=== PATIENT | male | born 1955 | race Caucasian/White ===

== ENCOUNTER 2016-08-27 19:04 | Emergency (ER) | payer OTHER ==
[~2016-08-27] VITALS: Ht 165.1 cm; Wt 81.6 kg
[2016-08-27 19:10] VITALS: BP_SYST 155
[2016-08-27] MEDS ORDERED: SULFAMETHOXAZOLE/TRIMETHOPR DS 1 TABLET PO ONE (20:30)
[2016-08-27] MEDS ORDERED: MORPHINE 4 MG/ML INJ. SYRINGE IM ONE (20:30)
[2016-08-27] MEDS ORDERED: ONDANSETRON 4 MG ODT TAB PO ONE (20:30)
[2016-08-27] MEDS ORDERED: cefTRIAXone 1 GM in LIDOCAINE 1%, 20 ML MDV 2.1 ML IM ONE (20:30)
[2016-08-27] MEDS ORDERED: DIPHENHYDRAMINE HCL 25 MG CAPSULE PO ONE (20:30)
[2016-08-27] MEDS ORDERED: DIPHENHYDRAMINE HCL 25 MG CAPSULE ONE (20:56)
[2016-08-27 22:30] VITALS: BP_SYST 156
== END 2016-08-27 20:30 | disposition home or self-care (01) ==
LOC: SED 19:04
DX: S20.461A Insect bite (nonvenomous) of right back wall of thorax, initial encounter (principal); B02.9 Zoster without complications; W57.XXXA Bitten or stung by nonvenomous insect and other nonvenomous arthropods, initial encounter; Y93.89 Activity, other specified; Y92.89 Other specified places as the place of occurrence of the external cause; Y99.8 Other external cause status
CPT/HCPCS: 96372; 99284; J0696; J2001; J2270; Q0162; Q0163

== ENCOUNTER 2018-02-08 15:10 | Emergency (ER) | payer BC, OTHER ==
[~2018-02-08] VITALS: Ht 172.7 cm; Wt 83.5 kg
[2018-02-08 15:10] VITALS: BP_SYST 153
[2018-02-08 15:59] LABS: BASOPHILS # (AUTO) 0.2 K/uL (0.0-0.2); BASOPHILS % (AUTO) 1.5 % (0.0-2.0); EOSINOPHILS # (AUTO) 0.1 K/uL (0.0-0.4); EOSINOPHILS % (AUTO) 0.4 % (0.0-4.0); HEMATOCRIT 49.1 % (36-54); HEMOGLOBIN 16.6 g/dL (14.0-18.0); LYMPHOCYTES # (AUTO) 0.7 K/uL (1.0-5.5); LYMPHOCYTES % (AUTO) 4.8 % (20.5-51.5); MEAN CORPUSCULAR HEMOGLOBIN 31 pg (27-31); MEAN CORPUSCULAR HGB CONC 34 % (32-36); MEAN CORPUSCULAR VOLUME 91 fL (79.0-98.0); MONOCYTES # (AUTO) 0.5 K/uL (0.0-1.0); MONOCYTES % (AUTO) 3.3 % (1.7-9.3); NEUTROPHILS # (AUTO) 13.4 K/uL (1.8-7.7); PLATELET COUNT (AUTO) 228 K/uL (130-430); RED CELL DISTRIBUTION WIDTH 12.5 % (9.0-15.0); WHITE BLOOD COUNT (AUTO) 14.9 K/uL (4.8-10.8)
[2018-02-08 16:13] LABS: CALCIUM 9.9 mg/dL (8.4-11.0); CREATININE 1.19 mg/dL (0.55-1.30); POTASSIUM 4.2 mmol/L (3.5-5.1)
[2018-02-08] MEDS ORDERED: NACL 0.9% 1,000 ML IV ONE (16:15)
[2018-02-08] MEDS ORDERED: ONDANSETRON HCL 4 MG/2 ML VIAL IVP ONE (16:15)
[2018-02-08] MEDS ORDERED: MORPHINE 2 MG/ML INJ. SYRINGE IVP ONE (16:15)
[2018-02-08 16:19] LABS: ALBUMIN 4.3 g/dL (3.4-4.8); TOTAL BILIRUBIN 0.9 mg/dL (0.0-1.0)
[2018-02-08] MEDS ORDERED: INSULIN REGULAR, HUMAN 10 UNITS/0.1 ML INJ IVP ONE (16:30)
[2018-02-08 16:55] LABS: BILIRUBIN,URINE NEGATIVE (NEGATIVE); BLOOD, URINE NEGATIVE (NEGATIVE); CLARITY/URINE CLEAR (CLEAR); COLOR,URINE YELLOW (YELLOW); GLUCOSE,URINE 2+ (NEGATIVE); KETONES,URINE TRACE (NEGATIVE); LEUKOCYTE ESTERASE ,URINE NEGATIVE (NEGATIVE); NITRITE, URINE NEGATIVE (NEGATIVE); PROTEIN URINE TRACE (NEGATIVE); UROBILINOGEN,URINE 0.2 (0.2-1.0)
[2018-02-08 17:00] LABS: BACTERIA,URINE RARE /HPF (None Seen); RBC,URINE 0-3 /HPF (0-3); WBC,URINE 0-3 /HPF (0-3)
[2018-02-08] MEDS ORDERED: ACETAMINOPHEN 500 MG TABLET PO ONE (18:30)
[2018-02-08 18:50] VITALS: BP_SYST 146
== END 2018-02-08 18:50 | disposition home or self-care (01) ==
LOC: SED 15:10
DX: E11.65 Type 2 diabetes mellitus with hyperglycemia (principal); R10.13 Epigastric pain; D72.829 Elevated white blood cell count, unspecified; I10 Essential (primary) hypertension
CPT/HCPCS: 36415; 74176; 80053; 81000; 82962; 83690; 84484; 85025; 86710; 93005; 96361; 96374; 96375; 99284; J1815; J2405; J7030

== ENCOUNTER 2020-11-21 12:40 | Inpatient (IN) | payer BC, SELFPAY ==
[~2020-11-21] VITALS: Ht 165.1 cm; Wt 78.7 kg
[2020-11-21 12:40] VITALS: BP_SYST 140
--- NOTE | 2020-11-21 12:40 | NUR ---
BROUGHT BACK TO BED #3 AND TRIAGED. REPORT GIVEN TO DANIKA
--- NOTE | 2020-11-21 12:50 | NUR ---
DR HERRING IN TO ASSESS
[2020-11-21] MEDS ORDERED: NACL 0.9% 1,000 ML IV ONE (13:00)
[2020-11-21 13:28] LABS: BASOPHILS % (AUTO) 0.1 % (0.0-2.0); EOSINOPHILS % (AUTO) 0.1 % (0.0-4.0); HEMATOCRIT 40.1 % (36-54); HEMOGLOBIN 14.1 g/dL (14.0-18.0); LYMPHOCYTES # (AUTO) 1.3 K/uL (1.0-5.5); LYMPHOCYTES % (AUTO) 8.8 % (20.5-51.5); MEAN CORPUSCULAR HEMOGLOBIN 31 pg (27-31); MEAN CORPUSCULAR HGB CONC 35 % (32-36); MEAN CORPUSCULAR VOLUME 89 fL (79.0-98.0); MONOCYTES # (AUTO) 0.7 K/uL (0.0-1.0); MONOCYTES % (AUTO) 4.5 % (1.7-9.3); NEUTROPHILS # (AUTO) 13.2 K/uL (1.8-7.7); NEUTROPHILS % (AUTO) 86.5 % (40.0-70.0); PLATELET COUNT (AUTO) 174 K/uL (130-430); RED CELL DISTRIBUTION WIDTH 13.5 % (9.0-15.0); WHITE BLOOD COUNT (AUTO) 15.2 K/uL (4.8-10.8)
--- NOTE | 2020-11-21 13:31 | NUR ---
LABS, EKG,CXR COMPLETED, PT CALM, ALERT CALM, RESP UNLABORED, SKIN WARM AND DRY. COMMUNICATES CLEARLY IN FULL COMPLETE SENTECES
[2020-11-21 13:40] LABS: ANION GAP 10 (5-15); CALCIUM 9.4 mg/dL (8.4-11.0); CHLORIDE 95 mmol/L (98-107); CREATININE 1.19 mg/dL (0.55-1.30); GLUCOSE 216 mg/dL (70-99); POTASSIUM 3.7 mmol/L (3.5-5.1); SODIUM SERUM 131 mmol/L (136-145); UREA NITROGEN, BLOOD 11 mg/dL (8-21)
[2020-11-21 13:42] LABS: GFR AFRICAN AMERICAN 79 mL/min (>90)
[2020-11-21 13:49] LABS: ALANINE AMINOTRANSFERASE 28 U/L (12-78); ALBUMIN 3.8 g/dL (3.4-4.8); ASPARTATE AMINOTRANSFERASE 17 U/L (10-37); LIPASE 78 U/L (73-393); TOTAL BILIRUBIN 1.8 mg/dL (0.0-1.0)
--- NOTE | 2020-11-21 14:02 | NUR ---
dr lau back to bedside to reassess
[2020-11-21 14:07] LABS: ACETONE, SERUM NEGATIVE (NEGATIVE)
[2020-11-21 14:33] LABS: BILIRUBIN,URINE NEGATIVE (NEGATIVE); BLOOD, URINE 3+ (NEGATIVE); COLOR,URINE YELLOW (YELLOW); GLUCOSE,URINE TRACE (NEGATIVE); KETONES,URINE 1+ (NEGATIVE); LEUKOCYTE ESTERASE ,URINE 2+ (NEGATIVE); NITRITE, URINE POSITIVE (NEGATIVE); PROTEIN URINE 1+ (NEGATIVE); UROBILINOGEN,URINE 0.2 (0.2-1.0)
[2020-11-21 14:34] LABS: CLARITY/URINE HAZY (CLEAR)
[2020-11-21 14:39] LABS: BACTERIA,URINE MODERATE /HPF (None Seen); WBC,URINE 80-100 /HPF (0-3)
[2020-11-21 14:40] LABS: MUCUS,URINE 1+ /LPF (None Seen)
[2020-11-21] MEDS ORDERED: ASPIRIN 325 MG TABLET PO ONE (14:45)
--- NOTE | 2020-11-21 14:45 | NUR ---
dr stapleton to bedside
[2020-11-21] MEDS ORDERED: cefTRIAXone 1 GM IVPB PREMIX 50 ML IV ONE (15:00)
--- NOTE | 2020-11-21 15:30 | NUR ---
AT BEDSIDE, PT VISITING, NO DISTRESS
--- NOTE | 2020-11-21 16:00 | NUR ---
VISITING WITH FAMILY. PT CALM, ALERT, RESP UNLABORED, SKIN WARM AND DRY
--- NOTE | 2020-11-21 18:43 | NUR ---
AT BED, PT EATING MEAL, TOLERATING WELL
[2020-11-21] MEDS ORDERED: GLIP10TA11 PO (19:21)
[2020-11-21] MEDS ORDERED: PRO10 PO (19:21)
[2020-11-21] MEDS ORDERED: ROSU10TA2 PO (19:21)
[2020-11-21] MEDS ORDERED: METF-518 PO (19:21)
--- NOTE | 2020-11-21 19:21 | NUR ---
Medication reconciliation completed with information provided by PICTURES PROVIDED BY PATIENT. Any prior medication reconciliation on file was reviewed and corrected.
--- NOTE | 2020-11-21 19:21 | NUR ---
PATIENT IS A FULL CODE
--- NOTE | 2020-11-21 21:30 | NUR ---
Patient will be admitted to care of Dr. Call. Admitted to TELE unit. Will go to room 100B. Belongings list completed. Complete and up to date summary report printed. SBAR report to be given at bedside with opportunity for questions.
--- NOTE | 2020-11-21 21:33 | NUR ---
Patient resting quietly. No acute distress noted. Vital signs within normal range.
--- NOTE | 2020-11-21 21:46 | NUR ---
Report given to MICHELLE Alvarado for continuation of care on TELE in room 100B
--- NOTE | 2020-11-21 21:47 | NUR ---
Transfer to via ACLS protocol. Licensed nurse present. IV present no signs or symptoms of infiltration.
--- NOTE | 2020-11-21 22:00 | NUR ---
Admission Note Received patient from ER with diagnosis of CHEST PAIN, URINARY TRACT INFECTION. Initial Plan of Care discussed-patient verbalized understanding. Oriented to room, call light, pain management and safety.
[2020-11-21 22:31] VITALS: BP_SYST 128
--- NOTE | 2020-11-21 23:28 | NUR ---
CALLED Lobo PERES FOR ORDERS Called if Lobo Peres wanted to order any medications, fluids, or lab tests. Dr. Call states "I'll do those for you." No new orders.
[2020-11-21] MEDS ORDERED: HYDROcodone/ACETAMIN 10-325 MG TAB PO PRN (23:45)
[2020-11-21] MEDS ORDERED: LORazepam 2 MG/ML VIAL IVP PRN (23:45)
[2020-11-21] MEDS ORDERED: HYDROcodone/ACETAMIN 5-325 MG TAB (NORCO/ VICODIN) PO PRN (23:45)
[2020-11-21] MEDS ORDERED: ONDANSETRON HCL 4 MG/2 ML VIAL IVP PRN (23:45)
[2020-11-21] MEDS ORDERED: ACETAMINOPHEN 325 MG TABLET PO PRN (23:45)
[2020-11-21] MEDS ORDERED: NALOXONE HCL 0.4 MG/ML AMP (NARCAN) IVP PRN ×2 (23:45)
[2020-11-22] VITALS: BP_SYST 121
[2020-11-22] MEDS ORDERED: NORMAL SALINE 5 ML DISP.SYRIN IVF SCH (06:00)
--- NOTE | 2020-11-22 06:20 | NUR ---
CONSULTATION PAGED/CALLED Reason for Consultation: UTI Person Who was Notified: DR BURGOS WAS HERE Consulting Physician: DR BRUGOS Social Scientist Specialty: Ordering Physician: Lobo ZAMORA
[2020-11-22 06:25] LABS: BASOPHILS % (AUTO) 0.2 % (0.0-2.0); HEMATOCRIT 35.3 % (36-54); HEMOGLOBIN 12.4 g/dL (14.0-18.0); LYMPHOCYTES # (AUTO) 1.7 K/uL (1.0-5.5); LYMPHOCYTES % (AUTO) 12.6 % (20.5-51.5); MEAN CORPUSCULAR HEMOGLOBIN 31 pg (27-31); MEAN CORPUSCULAR HGB CONC 35 % (32-36); MEAN CORPUSCULAR VOLUME 89 fL (79.0-98.0); MONOCYTES # (AUTO) 1.1 K/uL (0.0-1.0); MONOCYTES % (AUTO) 8.5 % (1.7-9.3); NEUTROPHILS # (AUTO) 10.4 K/uL (1.8-7.7); NEUTROPHILS % (AUTO) 78.7 % (40.0-70.0); PLATELET COUNT (AUTO) 148 K/uL (130-430); RED BLOOD CELL COUNT(AUTO) 3.98 MIL/uL (4.2-6.2); RED CELL DISTRIBUTION WIDTH 13.6 % (9.0-15.0); WHITE BLOOD COUNT (AUTO) 13.2 K/uL (4.8-10.8)
[2020-11-22 06:26] LABS: ALANINE AMINOTRANSFERASE 25 U/L (12-78); ALBUMIN 3.1 g/dL (3.4-4.8); ANION GAP 11 (5-15); ASPARTATE AMINOTRANSFERASE 17 U/L (10-37); CALCIUM 8.9 mg/dL (8.4-11.0); CHLORIDE 104 mmol/L (98-107); CREATININE 1.03 mg/dL (0.55-1.30); GLUCOSE 178 mg/dL (70-99); PHOSPHORUS 2.3 mg/dL (2.7-4.5); POTASSIUM 3.8 mmol/L (3.5-5.1); SODIUM SERUM 139 mmol/L (136-145); THYROID STIMULATING HORMONE 1.76 uIu/mL (0.36-3.74); TOTAL BILIRUBIN 1.2 mg/dL (0.0-1.0); UREA NITROGEN, BLOOD 12 mg/dL (8-21)
[2020-11-22] MEDS: INSULIN REGULAR, HUMAN 100 UNITS/ML, 10 ML VIAL (humuLIN R) SUBCUT PRN ×4 (06:38→21:11)
[2020-11-22 06:39] LABS: GFR AFRICAN AMERICAN 94 mL/min (>90)
[2020-11-22 07:00] LABS: CHOLESTEROL 84 mg/dL (<200); HDL CHOLESTEROL 54 mg/dL (>45); LDL CHOLESTEROL 35 mg/dL (<100); TRIGLYCERIDES 62 mg/dL (30-150)
[2020-11-22] MEDS: NORMAL SALINE 5 ML DISP.SYRIN IVF SCH ×3 (07:03→21:07)
--- NOTE | 2020-11-22 07:24 | NUR ---
CLOSING NOTES Patient resting in bed - no s/s pain or distress noted. Respirations even and unlabored - head of bed elevated. IV site patent - new IV inserted L hand 22G SL (old site RAC 22G SL). Bed locked and in lowest position. Call light within reach.
[2020-11-22 08:00] VITALS: BP_SYST 124
--- NOTE | 2020-11-22 08:00 | NUR ---
OPENING PT IN BED. EYES OPEN. DOES NOT APPEAR TO BE IN DISTRESS. PLAN OF CARE DISCUSSED. PT VERBALIZED UNDERSTANDING
[2020-11-22] MEDS: FLUoxetine HCL 10 MG CAPSULE (PROzac) PO SCH (09:23)
[2020-11-22] MEDS: ATORVASTATIN 20 MG TABLET PO SCH (09:24)
[2020-11-22] MEDS ORDERED: ASPIRIN 81 MG TAB.CHEW PO ONE (11:30)
[2020-11-22 11:45] VITALS: BP_SYST 124
--- NOTE | 2020-11-22 12:00 | NUR ---
ROUNDS DR QUIROZ HERE TO SEE PT. ORDERED LEXISCAN. NUCLEAR MED UNABLE TO PROCURE ISOTOPE AT THIS TIME. MD IS MADE AWARE. PATIENT REMAINED COMFORTABLE
[2020-11-22 16:00] VITALS: BP_SYST 138
[2020-11-22] MEDS: cefTRIAXone 1 GM IVPB PREMIX 50 ML IV SCH (16:02)
--- NOTE | 2020-11-22 18:10 | NUR ---
CLOSING PATIENT REMAINED COMFORTABLE. DENIES PAIN. ENCOURAGED TO AMBULATE. DR ZAMORA HERE ROUNDING Addendum: 11/22/20 at 1928 by Lisa Mansfield RN ADDENDUM PER DR QUIROZ, IF PATIENT IS TO BE DISCHARGE, PATIENT NEEDS TO CALL [facility] TO SCHEDULE LEXISCAN ON WEDNESDAY. IF TO BE DISCHARGE ON THE , PATIENT WILL NEED NITROGLYCERIN PRESCRIPTION. DR ZAMORA ISMADE AWARE. PER DR ZAMORA, PATIENT WILL STAY IN PATIENT DUE TO THE UTI
--- NOTE | 2020-11-22 19:15 | NUR ---
OPENING NOTES: Received patient report from morning shift nurse. Patient in bed, AAOx4, breathing evenly and nonlabored on room air, no s/s of distress. HOB elevated. Patient has an IV on the LH 20G, patent, benign, and flushing. No s/s of infection or infiltration. Educated patient on plan of care and call light use. Patient verbalized understanding with return demonstration. Fall/safety precaution. Will continue to monitor.
[2020-11-22 20:00] VITALS: BP_SYST 134
[2020-11-22] MEDS ORDERED: ROSUVASTATIN CALCIUM 5 MG/TAB (CRESTOR) PO SCH (21:00)
[2020-11-23] VITALS: BP_SYST 129
--- NOTE | 2020-11-23 | NUR ---
ROUNDS: Patient in bed, eyes closed, breathing evenly and nonlabored on room air. No s/s of distress. Will continue to monitor.
[2020-11-23] MEDS: NORMAL SALINE 5 ML DISP.SYRIN IVF SCH ×3 (06:05→21:00)
[2020-11-23 06:37] LABS: BASOPHILS % (AUTO) 0.2 % (0.0-2.0); EOSINOPHILS # (AUTO) 0.1 K/uL (0.0-0.4); EOSINOPHILS % (AUTO) 1.5 % (0.0-4.0); HEMOGLOBIN 12.9 g/dL (14.0-18.0); LYMPHOCYTES # (AUTO) 1.2 K/uL (1.0-5.5); LYMPHOCYTES % (AUTO) 13.9 % (20.5-51.5); MEAN CORPUSCULAR HEMOGLOBIN 31 pg (27-31); MEAN CORPUSCULAR HGB CONC 35 % (32-36); MEAN CORPUSCULAR VOLUME 89 fL (79.0-98.0); MONOCYTES # (AUTO) 0.8 K/uL (0.0-1.0); MONOCYTES % (AUTO) 9.1 % (1.7-9.3); NEUTROPHILS # (AUTO) 6.3 K/uL (1.8-7.7); NEUTROPHILS % (AUTO) 75.3 % (40.0-70.0); PLATELET COUNT (AUTO) 177 K/uL (130-430); RED BLOOD CELL COUNT(AUTO) 4.15 MIL/uL (4.2-6.2); RED CELL DISTRIBUTION WIDTH 13.3 % (9.0-15.0); WHITE BLOOD COUNT (AUTO) 8.3 K/uL (4.8-10.8)
--- NOTE | 2020-11-23 06:38 | NUR ---
CLOSING NOTES: Patient in bed, AAOx4, breathing evenly and nonlabored on room air, no s/s of distress. HOB elevated. Patient has an IV on the LH 20G, patent, benign, and flushing. No s/s of infection or infiltration. Fall/safety precaution. Will continue to monitor and endorse care to morning shift nurse. All needs met at this time.
[2020-11-23] MEDS ORDERED: REGADENOSON 0.4 MG/5 ML SYRINGE IVP ONE (07:05)
[2020-11-23 07:24] LABS: ANION GAP 9 (5-15); CHLORIDE 101 mmol/L (98-107); CREATININE 0.97 mg/dL (0.55-1.30); GLUCOSE 138 mg/dL (70-99); POTASSIUM 4.6 mmol/L (3.5-5.1); SODIUM SERUM 136 mmol/L (136-145); UREA NITROGEN, BLOOD 13 mg/dL (8-21)
[2020-11-23 08:00] VITALS: BP_SYST 129
[2020-11-23 08:02] LABS: GFR AFRICAN AMERICAN 100 mL/min (>90)
[2020-11-23] MEDS: ATORVASTATIN 20 MG TABLET PO SCH (08:49)
[2020-11-23] MEDS: FLUoxetine HCL 10 MG CAPSULE (PROzac) PO SCH (08:49)
[2020-11-23] MEDS: ASPIRIN 81 MG TAB.CHEW PO SCH (08:50)
[2020-11-23 09:18] LABS: C-REACTIVE PROTEIN QUANT 23.9 mg/dL (0-0.5)
[2020-11-23 11:27] LABS: ERYTHROCYTE SEDIMENTATION RATE 87 MM/HR (0-15)
[2020-11-23 12:00] VITALS: BP_SYST 126
[2020-11-23] MEDS: INSULIN REGULAR, HUMAN 100 UNITS/ML, 10 ML VIAL (humuLIN R) SUBCUT PRN (12:12)
[2020-11-23] MEDS: cefTRIAXone 1 GM IVPB PREMIX 50 ML IV SCH (15:13)
[2020-11-23 16:00] VITALS: BP_SYST 128
[2020-11-23 20:00] VITALS: BP_SYST 147
--- NOTE | 2020-11-23 20:00 | NUR ---
INITIAL NOTES: PT IS ALERT AND ORIENTED , FAMILY AT BEDSIDE ; NOT IN ANY ACUTE DISTRESS; VITALS ARE STABLE ; ASSESSMENT DONE ; ALL NEEDS RN ATTENDED . DENIED ANY PAIN OR SOB AT THIS TIME . BED IN LOW AND LOCK POSITION , CALL ROMAN IN REACH ; WILL CONTINUE MONITOR PT .
[2020-11-24 00:15] VITALS: BP_SYST 123
--- NOTE | 2020-11-24 00:29 | NUR ---
RN NOTES: PT IS SLEEPING , COMFORTABLY , EASILY AROUSABLE TO NAME CALLED ;RESPIRATION IS EVEN AND NON LABORED , VITALS ARE STABLE ; NOT IN ANY ACUTE DISTRESS ; WILL CONTINUE TO MONITOR PT .
[2020-11-24] MEDS: NORMAL SALINE 5 ML DISP.SYRIN IVF SCH ×3 (06:11→20:33)
--- NOTE | 2020-11-24 07:34 | NUR ---
CLOSING NOTES: PT IS AWAKE ,NOT IN ANY ACUTE DISTRESS; REPORT GIVEN TO RN AT BEDSIDE ; ALL NEEDS ATTENDED .
[2020-11-24 08:00] VITALS: BP_SYST 134
--- NOTE | 2020-11-24 08:00 | NUR ---
PATIENT IN BED, NO S/S OF DISTRESS, A/OX4, AMBULATES, IV LEFT HAND 20G INTACT PATENT, ON ROOM AIR O2 SAT >95%, BATHROOM PRIVILEGES, NSR ON TELE, BED IN LOWEST LOCKED POSITION, CALL LIGHT WITHIN REACH, SAFETY MEASURES IN PLACE, WILL CONTINUE TO MONITOR.
[2020-11-24 08:02] LABS: BASOPHILS % (AUTO) 0.3 % (0.0-2.0); EOSINOPHILS # (AUTO) 0.1 K/uL (0.0-0.4); EOSINOPHILS % (AUTO) 1.9 % (0.0-4.0); HEMATOCRIT 37.1 % (36-54); HEMOGLOBIN 12.8 g/dL (14.0-18.0); LYMPHOCYTES # (AUTO) 1.5 K/uL (1.0-5.5); LYMPHOCYTES % (AUTO) 26.4 % (20.5-51.5); MEAN CORPUSCULAR HEMOGLOBIN 31 pg (27-31); MEAN CORPUSCULAR HGB CONC 35 % (32-36); MEAN CORPUSCULAR VOLUME 89 fL (79.0-98.0); MONOCYTES % (AUTO) 17.1 % (1.7-9.3); NEUTROPHILS % (AUTO) 54.3 % (40.0-70.0); PLATELET COUNT (AUTO) 199 K/uL (130-430); RED BLOOD CELL COUNT(AUTO) 4.16 MIL/uL (4.2-6.2); RED CELL DISTRIBUTION WIDTH 13.4 % (9.0-15.0); WHITE BLOOD COUNT (AUTO) 5.6 K/uL (4.8-10.8)
[2020-11-24 08:19] LABS: CALCIUM 9.2 mg/dL (8.4-11.0); CREATININE 1.01 mg/dL (0.55-1.30); POTASSIUM 4.6 mmol/L (3.5-5.1)
[2020-11-24] MEDS: ATORVASTATIN 20 MG TABLET PO SCH (08:22)
[2020-11-24] MEDS: FLUoxetine HCL 10 MG CAPSULE (PROzac) PO SCH (08:22)
[2020-11-24] MEDS: ASPIRIN 81 MG TAB.CHEW PO SCH (08:22)
[2020-11-24] MEDS ORDERED: ASA81 PO (11:17)
[2020-11-24] MEDS ORDERED: CIPR500T5 PO (11:17)
[2020-11-24 11:43] LABS: ERYTHROCYTE SEDIMENTATION RATE 90 MM/HR (0-15)
[2020-11-24 12:00] VITALS: BP_SYST 124
--- NOTE | 2020-11-24 13:00 | NUR ---
PATIENT TO HAVE LEXISCAN TOMORROW AND IF CLEARED BY CARDIOLOGY HE WILL BE DISCHARGED, WILL ENDORSE THIS INFORMATION TO THE NEXT SHIFT. NO COMPLAINTS FROM PATIENT AT THIS TIME, TOLERATING CARE. MADE AWARE OF THE PLAN OF CARE.
[2020-11-24] MEDS: cefTRIAXone 1 GM IVPB PREMIX 50 ML IV SCH (14:31)
[2020-11-24 16:00] VITALS: BP_SYST 129
--- NOTE | 2020-11-24 16:00 | NUR ---
SPOKE TO DR ZAMORA AT NURSING STATION, STATED PATIENT IS ABLE OT WALK SO THERE IS NO REASON FOR HIM TO PAY FOR THE LEXISCAN VERSION OF THE STRESS TEST, STATED TO CHANGE ORDER THE REGULAR STRESS TEST WHERE THE PATIENT PERFORMS ACTIVITY AND TO HAVE PATIENT NPO AFTER MIDNIGHT SINCE HE WILL HAVE THE STRESS TEST PERFORMED AT 0830 ON 11/25/20. WILL EDUCATION PATIENT ON PLAN AND UPDATE NEEDED
--- NOTE | 2020-11-24 19:05 | NUR ---
patient in bed, friends at bedside, no complaints of chest pain at this time, plan for stress test non medicated tomorrow morning at 0830, will notify call person that patient is to be NPO after midnight, no s/s of distress, bed in lowest locked position, call light within reach, safety measures in place, will endorse continuation of care to call person.
--- NOTE | 2020-11-24 19:30 | NUR ---
OPENING NOTES: Received patient report from day shift nurse. Patient in bed, AAOx4, breathing evenly and nonlabored on room air, no s/s of distress. Patient is watching his phone. Patient has an IV on the LH 20G, patent, benign, and flushing. No s/s of infection or infiltration. Educated patient on plan of care and call light use. Patient verbalized understanding with return demonstration. Fall/safety precautions are in place. Will continue to monitor.
[2020-11-24 20:00] VITALS: BP_SYST 132
[2020-11-24] MEDS: INSULIN REGULAR, HUMAN 100 UNITS/ML, 10 ML VIAL (humuLIN R) SUBCUT PRN (20:31)
--- NOTE | 2020-11-25 | NUR ---
NPO PT PLACED NPO FOR STRESS TEST TODAY. PT VERBALIZED UNDERSTANDING. NPO CONE PLACED AT BEDSIDE.
[2020-11-25 00:18] VITALS: BP_SYST 114
[2020-11-25] MEDS: NORMAL SALINE 5 ML DISP.SYRIN IVF SCH (06:18)
--- NOTE | 2020-11-25 06:43 | NUR ---
CLOSING NOTE Patient in bed, AAOx4, breathing evenly and nonlabored on room air, no s/s of distress. Patient is watching his phone. Patient has an IV on the LH 20G, patent, benign, and flushing. No s/s of infection or infiltration. Patient is NPO for stress test. Fall/safety precautions are in place. Will continue to monitor until patient care is endorsed to day shift RN.
--- NOTE | 2020-11-25 08:00 | NUR ---
AM ROUNDS: PATIENT AWAKE SITTING ON THE BED.INSTRUCTED REGARDING REGULAR STRESS STUDY TODAY.PATIENT UNDERSTANDS INSTRUCTIONS GIVEN.MAINTAINED NPO.CALL LIGHT WITH IN REACH. BED LOCKED AT LOWEST POSITION. DENIES ANY CHEST PAIN.
[2020-11-25 08:10] VITALS: BP_SYST 126
[2020-11-25 08:29] LABS: BASOPHILS % (AUTO) 0.5 % (0.0-2.0); EOSINOPHILS # (AUTO) 0.2 K/uL (0.0-0.4); EOSINOPHILS % (AUTO) 3.1 % (0.0-4.0); HEMATOCRIT 40.2 % (36-54); HEMOGLOBIN 13.9 g/dL (14.0-18.0); LYMPHOCYTES # (AUTO) 2.4 K/uL (1.0-5.5); LYMPHOCYTES % (AUTO) 35.5 % (20.5-51.5); MEAN CORPUSCULAR HEMOGLOBIN 31 pg (27-31); MEAN CORPUSCULAR HGB CONC 35 % (32-36); MEAN CORPUSCULAR VOLUME 90 fL (79.0-98.0); MONOCYTES % (AUTO) 14.3 % (1.7-9.3); NEUTROPHILS # (AUTO) 3.1 K/uL (1.8-7.7); NEUTROPHILS % (AUTO) 46.6 % (40.0-70.0); PLATELET COUNT (AUTO) 237 K/uL (130-430); RED CELL DISTRIBUTION WIDTH 13.2 % (9.0-15.0); WHITE BLOOD COUNT (AUTO) 6.7 K/uL (4.8-10.8)
[2020-11-25 08:54] LABS: ALBUMIN 3.3 g/dL (3.4-4.8); CALCIUM 9.9 mg/dL (8.4-11.0); CREATININE 0.94 mg/dL (0.55-1.30); PHOSPHORUS 4.8 mg/dL (2.7-4.5); POTASSIUM 4.8 mmol/L (3.5-5.1); TOTAL BILIRUBIN 0.5 mg/dL (0.0-1.0)
--- NOTE | 2020-11-25 09:20 | NUR ---
STRESS STUDY: PATIENT TO CARDIOLOGY FOR STRESS STUDY.
[2020-11-25 10:10] LABS: ERYTHROCYTE SEDIMENTATION RATE 83 MM/HR (0-15)
[2020-11-25 10:14] LABS: C-REACTIVE PROTEIN QUANT 6.1 mg/dL (0-0.5)
--- NOTE | 2020-11-25 10:21 | NUR ---
CARDIO CLEARED: SPOKE WITH DR Luis ZAMORA WITH ORDERS PATIENT DC HOME ,FOLLOW UP WITH PCP IN 1 WEEK AND CARDIO IN 2-3 WEEKS.
[2020-11-25 10:32] VITALS: BP_SYST 132
[2020-11-25] MEDS: ASPIRIN 81 MG TAB.CHEW PO SCH (10:44)
[2020-11-25] MEDS: ATORVASTATIN 20 MG TABLET PO SCH (10:45)
[2020-11-25] MEDS: FLUoxetine HCL 10 MG CAPSULE (PROzac) PO SCH (10:56)
[2020-11-25 11:35] VITALS: BP_SYST 132
--- NOTE | 2020-11-25 11:35 | NUR ---
D/C Patient Patient given medication reconciliation form and D/C instructions. Exit Care provided. Patient verbalized understanding. MD discussed with patient the results and treatment provided. Ambulatory with steady gait for discharge to home. Patient in stable condition, ID band removed. IV catheter removed, intact and dressing applied, no active bleeding. Rx of Cipro and Aspirin given to Aida. Patient educated on pain management. All belongings sent with patient.
== END 2020-11-25 11:35 | disposition home or self-care (01) | DRG 690 ==
LOC: SED 12:40 → STU 15:28
PROVIDERS: ADMIT Preventive Medicine Preventive Medicine/Occupational Environmental Medicine; ATTEND Preventive Medicine Preventive Medicine/Occupational Environmental Medicine
DX: N39.0 Urinary tract infection, site not specified (principal); I20.0 Unstable angina; E78.00 Pure hypercholesterolemia, unspecified; E11.65 Type 2 diabetes mellitus with hyperglycemia; E78.5 Hyperlipidemia, unspecified; G51.0 Bell's palsy; E88.09 Other disorders of plasma-protein metabolism, not elsewhere classified; I11.9 Hypertensive heart disease without heart failure; E83.39 Other disorders of phosphorus metabolism; Z20.822 Contact with and (suspected) exposure to COVID-19; D64.9 Anemia, unspecified; F32.9 Major depressive disorder, single episode, unspecified; B96.20 Unspecified Escherichia coli [E. coli] as the cause of diseases classified elsewhere; N40.0 Benign prostatic hyperplasia without lower urinary tract symptoms; Z79.4 Long term (current) use of insulin; I25.2 Old myocardial infarction
CPT/HCPCS: 36415; 71045; 76770; 80048; 80053; 80061; 81000; 82009; 82962; 83036; 83605; 83690; 83735; 83880; 84100; 84443; 84484; 85025; 85379; 85651-TC; 86140; 87040-TC; 87086; 93005; 93017; 93306; 96374; 99285; G0378; J0696; J1815; J2785

== ENCOUNTER 2022-03-11 22:07 | Emergency (ER) | payer BC ==
[~2022-03-11] VITALS: Ht 165.1 cm; Wt 80.7 kg
[~2022-03-11 22:07] MED LIST: ASA81 PO; CIPR500T5 PO; GLIP10TA11 PO; METF-518 PO; PRO10 PO; ROSU10TA2 PO
[2022-03-11 22:30] VITALS: BP_SYST 153
[2022-03-11] MEDS ORDERED: NACL 0.9% 1,000 ML IV ONE (23:16)
[2022-03-11 23:28] LABS: BILIRUBIN,URINE NEGATIVE (NEGATIVE); BLOOD, URINE NEGATIVE (NEGATIVE); CLARITY/URINE CLEAR (CLEAR); COLOR,URINE YELLOW (YELLOW); GLUCOSE,URINE 3+ (NEGATIVE); KETONES,URINE 2+ (NEGATIVE); LEUKOCYTE ESTERASE ,URINE NEGATIVE (NEGATIVE); NITRITE, URINE NEGATIVE (NEGATIVE); PROTEIN URINE NEGATIVE (NEGATIVE); UROBILINOGEN,URINE 0.2 (0.2-1.0)
[2022-03-11 23:46] LABS: BACTERIA,URINE None Seen /HPF (None Seen); RBC,URINE 0-3 /HPF (0-3); WBC,URINE 0-3 /HPF (0-3)
[2022-03-12 00:31] LABS: BASOPHILS % (AUTO) 0.2 % (0.0-2.0); EOSINOPHILS % (AUTO) 0.1 % (0.0-4.0); HEMATOCRIT 39.4 % (36-54); HEMOGLOBIN 13.7 g/dL (14.0-18.0); LYMPHOCYTES # (AUTO) 1.4 K/uL (1.0-5.5); LYMPHOCYTES % (AUTO) 10.5 % (20.5-51.5); MEAN CORPUSCULAR HEMOGLOBIN 31 pg (27-31); MEAN CORPUSCULAR HGB CONC 35 % (32-36); MEAN CORPUSCULAR VOLUME 88 fL (79.0-98.0); MONOCYTES # (AUTO) 0.7 K/uL (0.0-1.0); MONOCYTES % (AUTO) 5.2 % (1.7-9.3); NEUTROPHILS # (AUTO) 11.1 K/uL (1.8-7.7); PLATELET COUNT (AUTO) 198 K/uL (130-430); RED BLOOD CELL COUNT(AUTO) 4.48 MIL/uL (4.2-6.2); RED CELL DISTRIBUTION WIDTH 13.7 % (9.0-15.0); WHITE BLOOD COUNT (AUTO) 13.3 K/uL (4.8-10.8)
[2022-03-12 00:42] LABS: CALCIUM 9.3 mg/dL (8.4-11.0); CREATININE 1.09 mg/dL (0.55-1.30)
[2022-03-12 00:55] LABS: ALBUMIN 3.8 g/dL (3.4-4.8); TOTAL BILIRUBIN 0.6 mg/dL (0.0-1.0)
[2022-03-12 01:35] VITALS: BP_SYST 153
== END 2022-03-12 01:35 | disposition home or self-care (01) ==
LOC: SED 22:07
DX: A08.4 Viral intestinal infection, unspecified (principal); R10.84 Generalized abdominal pain; E11.9 Type 2 diabetes mellitus without complications; I10 Essential (primary) hypertension; E78.00 Pure hypercholesterolemia, unspecified; Z79.899 Other long term (current) drug therapy
CPT/HCPCS: 36415; 76376; 80053; 81000; 83605; 85025; 87040; 99284